=== PATIENT | male | born 1950 | race Caucasian/White ===

== ENCOUNTER 2023-05-05 10:11 | Inpatient (IN) | payer OTHER ==
[2023-05-05 12:18] LABS: BASO % 0.7 % (0-2.0); EOS % 0.7 % (0-4.5); HEMATOCRIT 39.2 % (35.4-49); HEMOGLOBIN 13.2 GM/dL (11.7-16.9); LYMPH % 15.9 % (8-40); MCH 29.5 pg (25.7-33.7); MCHC 33.6 g/dl (32.0-35.9); MEAN CELL VOLUME 87.9 fl (80-96); MEAN PLT VOLUME 8.1 fl (7.5-11.1); MONO % 6.1 % (3.8-10.2); NEUT % 76.6 % (42.8-82.8); PLATELET COUNT 209 10^3/uL (134-434); RBC 4.46 M/mm3 (4.00-5.60); RDW 15.1 % (11.9-15.9); WHITE BLOOD COUNT 6.7 K/mm3 (4.0-10.0)
[2023-05-05 12:23] LABS: INR 0.96 (0.83-1.09); PROTHROMBIN TIME (PATIENT) 11.1 SEC (9.7-13.0)
[2023-05-05 12:26] LABS: ACTIVATED PTT 25.5 SECONDS (25.2-36.5)
[2023-05-05 12:49] LABS: POTASSIUM 5.4 mmol/L (3.5-5.1)
[2023-05-05 12:52] LABS: ALBUMIN 4.2 g/dl (3.4-5.0)
[2023-05-05] MEDS ORDERED: DEXTROSE 50%-WATER - 25 GM/50 ML VIAL IVPUSH ONE (12:52)
[2023-05-05] MEDS ORDERED: INSULIN REGULAR HUMAN 100 UNITS/ML *VIAL IVPUSH ONE (12:52)
[2023-05-05] MEDS ORDERED: FUROSEMIDE 40 MG/4 ML INJECTABLE VIAL IVPUSH ONE (12:52)
[2023-05-05] MEDS ORDERED: CALCIUM GLUCONATE 10% - 1,000 MG/10 ML VIAL IVPUSH ONE (12:54)
[2023-05-05 12:56] LABS: CREATININE 4.7 mg/dL (0.55-1.3)
[2023-05-05 12:57] LABS: BILIRUBIN,TOTAL 0.4 mg/dL (0.2-1)
[2023-05-05 12:58] LABS: TOT PROT 7.7 g/dl (6.4-8.2)
[2023-05-05 13:01] LABS: N-TERMINAL BNP 1890.6 pg/ml (5-125)
[2023-05-05 13:03] LABS: BLOOD UREA NITROGEN 93.7 mg/dL (7-18)
[2023-05-05] MEDS ORDERED: ALBUTEROL SO4 2.5/IPRATROPIUM 0.5 INH SOL 3 ML VIAL.NEB. NEB ONE ×3 (13:08→15:40)
[2023-05-05] MEDS ORDERED: CALCIUM GLUCONATE 10% - 1,000 MG/10 ML VIAL ONE (13:08)
[2023-05-05] MEDS ORDERED: FUROSEMIDE 40 MG/4 ML INJECTABLE VIAL ONE (13:08)
[2023-05-05] MEDS ORDERED: HEPARIN NA (PORCINE) 5,000 UNITS/ML 1ML VIAL ONE (14:08)
[2023-05-05] MEDS: HEPARIN NA (PORCINE) 5,000 UNITS/ML 1ML VIAL SQ SCH ×2 (15:37→21:44)
[2023-05-05] MEDS: ALBUTEROL SO4 2.5/IPRATROPIUM 0.5 INH SOL 3 ML VIAL.NEB. NEB SCH ×3 (15:37→15:52)
[2023-05-05 16:36] LABS: CHLORIDE 106 mmol/L (98-107); POTASSIUM 5.6 mmol/L (3.5-5.1); SODIUM 131 mmol/L (136-145)
[2023-05-05 16:38] LABS: ANION GAP 12 MMOL/L (8-16); CALCIUM 8.8 mg/dL (8.5-10.1); CO2 14 mmol/L (21-32)
[2023-05-05 16:39] LABS: BLOOD UREA NITROGEN 96.5 mg/dL (7-18)
[2023-05-05 16:42] LABS: CREATININE 4.8 mg/dL (0.55-1.3)
[2023-05-05 16:45] LABS: GLUCOSE,RANDOM 424 mg/dL (74-106)
[2023-05-05] MEDS: INSULIN SLIDING SCALE (NOVOLOG) 1 VIAL SQ SCH ×2 (17:30→21:44)
[2023-05-05 18:06] VITALS: BMI 32.5
[2023-05-05] MEDS ORDERED: INSULIN (LEVEMIR) 100 UNITS/ML UNITS SQ SCH ×2 (22:00→22:02)
[2023-05-05] MEDS ORDERED: ROSUVASTATIN CA 20 MG TABLET PO SCH (22:00)
[2023-05-06] MEDS ORDERED: METOPROLOL TARTRATE 5 MG/5 ML VIAL IVPUSH ONE (00:22)
[2023-05-06] MEDS ORDERED: INSULIN (NOVOLOG) ASPART 100 UNITS/ML 10ML VIAL SQ ONE (04:18)
[2023-05-06] MEDS: HEPARIN NA (PORCINE) 5,000 UNITS/ML 1ML VIAL SQ SCH ×2 (05:48→14:50)
[2023-05-06] MEDS: INSULIN SLIDING SCALE (NOVOLOG) 1 VIAL SQ SCH ×4 (06:39→22:22)
[2023-05-06] MEDS: INSULIN (LEVEMIR) 100 UNITS/ML UNITS SQ SCH ×2 (06:40→22:21)
[2023-05-06 07:19] LABS: BASO % 0.9 % (0-2.0); EOS % 1.2 % (0-4.5); HEMATOCRIT 38.3 % (35.4-49); HEMOGLOBIN 12.3 GM/dL (11.7-16.9); LYMPH % 21.6 % (8-40); MCH 28.8 pg (25.7-33.7); MCHC 32.2 g/dl (32.0-35.9); MEAN CELL VOLUME 89.4 fl (80-96); MEAN PLT VOLUME 8.5 fl (7.5-11.1); MONO % 9.6 % (3.8-10.2); NEUT % 66.7 % (42.8-82.8); PLATELET COUNT 213 10^3/uL (134-434); RBC 4.28 M/mm3 (4.00-5.60); RDW 15.2 % (11.9-15.9); WHITE BLOOD COUNT 5.7 K/mm3 (4.0-10.0)
[2023-05-06 07:35] LABS: POTASSIUM 4.5 mmol/L (3.5-5.1)
[2023-05-06 07:57] LABS: ALBUMIN 3.8 g/dl (3.4-5.0); BLOOD UREA NITROGEN 95.8 mg/dL (7-18); CALCIUM 8.8 mg/dL (8.5-10.1); MAGNESIUM 2.2 mg/dL (1.8-2.4)
[2023-05-06 07:59] LABS: CREATININE 5.1 mg/dL (0.55-1.3); PHOSPHOROUS 5.3 mg/dL (2.5-4.9)
[2023-05-06 08:00] LABS: BILIRUBIN,TOTAL 0.2 mg/dL (0.2-1)
[2023-05-06 08:01] LABS: TOT PROT 7.3 g/dl (6.4-8.2)
[2023-05-06] MEDS ORDERED: TAMSULOSIN HCL 0.4 MG CAP PO SCH (08:30)
[2023-05-06] MEDS ORDERED: SODIUM ZIRCONIUM CYCLOSILICATE (LOKELMA) 5 GM PACKET PO SCH (10:00)
[2023-05-06] MEDS ORDERED: ASPIRIN COATED 81 MG TABLET.EC PO SCH (10:00)
[2023-05-06] MEDS ORDERED: HEPARIN NA (PORCINE) 5,000 UNITS/ML 1ML VIAL IVPUSH PRN ×2 (14:43)
[2023-05-06] MEDS ORDERED: HEPARIN - 25,000 UNIT in SODIUM CHLORIDE 495 ML IV SCH (14:45)
[2023-05-06 23:48] VITALS: BP 136/72; PULSE 99; RESP 20; TEMP 98.3
== END 2023-05-07 00:30 | disposition short-term general hospital (02) | DRG 281 ==
LOC: JER 10:11 → JERBED 13:10 → J4S 16:45
PROVIDERS: ADMIT Internal Medicine; ATTEND Internal Medicine
DX: I21.4 Non-ST elevation (NSTEMI) myocardial infarction (principal); I12.0 Hypertensive chronic kidney disease with stage 5 chronic kidney disease or end stage renal disease; N18.5 Chronic kidney disease, stage 5; E11.22 Type 2 diabetes mellitus with diabetic chronic kidney disease; E11.65 Type 2 diabetes mellitus with hyperglycemia; E78.5 Hyperlipidemia, unspecified; R91.1 Solitary pulmonary nodule; E87.5 Hyperkalemia
CPT/HCPCS: 36415; 71046-TC-FY; 80048; 80053; 80061; 82962; 83036; 83735; 83880; 84100; 84443; 84484; 85025; 85610; 85730; 86850; 86900; 86901; 87635; 93005; 93010; 93306-TC; 99285-25; J1644